=== PATIENT | male | born 1995 | race Two or more races ===

== ENCOUNTER 2020-10-07 12:36 | Emergency (ER) | payer OTHER ==
[2020-10-07 15:58] LABS: HEMOGLOBIN 15.9 gm/dl (14.0-17.5); RED BLOOD COUNT 5.3 M/UL (4.20-5.50); WHITE BLOOD COUNT 9.5 K/UL (4.5-11.0)
[2020-10-07 16:28] LABS: BUN/CREATININE RATIO 15 (0-10)
[2020-10-07] MEDS ORDERED: AZITHROMYCIN250 MG PO (17:02)
[2020-10-07] MEDS ORDERED: DECADRON6 MG PO (17:02)
== END 2020-10-07 17:22 | disposition home or self-care (01) ==
LOC: ER1 12:36
PROVIDERS: Family Medicine
DX: U07.1 COVID-19 (principal)
CPT/HCPCS: 71045; 80053; 82550; 82553; 83874; 84484; 85025; 99285; U0002